=== PATIENT | female | born 1970 | race Caucasian/White ===

== ENCOUNTER 2017-09-26 09:12 | Emergency (ER) | payer MEDICAID ==
[~2017-09-26] VITALS: Ht 170.2 cm; Wt 104.5 kg
[2017-09-26] MEDS ORDERED: BUSP5TAB20 PO (09:30)
[2017-09-26] MEDS ORDERED: BACL10TA PO (09:30)
[2017-09-26] MEDS ORDERED: METF500T4 PO (09:30)
[2017-09-26] MEDS ORDERED: OXYC-522 PO (09:30)
[2017-09-26] MEDS ORDERED: NAPR-58 PO (09:30)
[2017-09-26] MEDS ORDERED: TRAZ150 PO (09:30)
[2017-09-26] MEDS ORDERED: GABA-531 PO (09:30)
[2017-09-26] MEDS ORDERED: GEMF600T3 PO (09:30)
[2017-09-26] MEDS ORDERED: LOSA25TA21 PO (09:30)
[2017-09-26] MEDS ORDERED: ASPI-1182 PO (09:30)
[2017-09-26] MEDS ORDERED: METO25 PO (09:30)
[2017-09-26] MEDS ORDERED: HYD50 PO (09:30)
[2017-09-26] MEDS ORDERED: ATOR10TA84 PO (09:30)
[2017-09-26] MEDS ORDERED: KETOROLAC TROMETHAMINE 30 MG/ML VIAL IVP ONE (10:15)
[2017-09-26] MEDS ORDERED: SODIUM CHLORIDE 0.9% 1,000 ML IV ONE (10:15)
[2017-09-26] MEDS ORDERED: ONDANSETRON HCL 4 MG/2 ML VIAL IVP ONE (10:15)
[2017-09-26 11:14] LABS: BASOPHILS % (AUTO) 0.8 % (0.0-2.0); HEMATOCRIT 40.1 % (36-46); HEMOGLOBIN 13.6 g/dL (12.0-16.0); LYMPHOCYTES # (AUTO) 2.2 K/uL (1.0-4.8); LYMPHOCYTES % (AUTO) 25.4 % (22.0-44.0); MEAN CORPUSCULAR HEMOGLOBIN 29.3 pg (26.0-34.0); MEAN CORPUSCULAR VOLUME 86 fL (80-100); MONOCYTES # (AUTO) 0.4 K/uL (0.1-1.0); MONOCYTES % (AUTO) 4.8 % (2.0-9.0); NEUTROPHILS # (AUTO) 5.7 K/uL (1.8-7.7); PLATELET COUNT (AUTO) 279 K/uL (150-450); RED BLOOD CELL COUNT(AUTO) 4.65 MIL/uL (4.00-5.20); RED CELL DISTRIBUTION WIDTH 14.2 % (11.5-14.5)
[2017-09-26 11:41] LABS: ANION GAP 9 mmol/L (8-16); CALCIUM, TOTAL 9.1 mg/dL (8.8-10.5); CARBON DIOXIDE 27 mmol/L (22-29); CHLORIDE 104 mmol/L (98-107); CREATININE 0.91 mg/dL (0.60-1.30); GLOMERULAR FILTR. RATE CALC > 60 mL/min (>60); GLUCOSE,RANDOM 131 mg/dL (70-110); POTASSIUM 4.4 mmol/L (3.5-5.1); SODIUM SERUM 140 mmol/L (136-145); UREA NITROGEN, BLOOD 23 mg/dL (7-18)
[2017-09-26 11:45] LABS: ALANINE AMINOTRANSFERASE 22 U/L (12-78); ALBUMIN 3.7 g/dL (3.4-5.0); ALKALINE PHOSPHATASE 88 U/L (46-116); ASPARTATE AMINOTRANSFERASE 13 U/L (15-37); BILIRUBIN,TOTAL 0.2 mg/dL (0.1-1.0); LIPASE 133 U/L (73-393)
[2017-09-26 11:50] LABS: APPEARANCE,URINE CLEAR (CLEAR); BILIRUBIN,URINE NEGATIVE (NEGATIVE); GLUCOSE, URINE (UA) NEGATIVE (NEGATIVE); KETONES,URINE NEGATIVE (NEGATIVE); LEUKOCYTE ESTERASE ,URINE NEGATIVE (NEGATIVE); NITRATE,URINE NEGATIVE (NEGATIVE); OCCULT BLOOD,URINE NEGATIVE (NEGATIVE); PROTEIN,URINE NEGATIVE (NEGATIVE); UROBILINOGEN,URINE 0.2 mg/dL (<=1.0)
[2017-09-26] MEDS ORDERED: HYDROCODONE/ACETAMINOPHEN 5-325 MG TABLET PO ONE (12:15)
[2017-09-26 12:21] VITALS: BP 119/87
== END 2017-09-26 12:46 | disposition home or self-care (01) ==
LOC: EMS 09:14
DX: R10.84 Generalized abdominal pain (principal); E11.9 Type 2 diabetes mellitus without complications; I10 Essential (primary) hypertension; I25.10 Atherosclerotic heart disease of native coronary artery without angina pectoris; M79.7 Fibromyalgia; F12.10 Cannabis abuse, uncomplicated; F17.210 Nicotine dependence, cigarettes, uncomplicated; Z79.82 Long term (current) use of aspirin
CPT/HCPCS: 36415; 74176; 80053; 81003; 83690; 84484; 84703; 85025; 93005; 96374; 96375; 99285; 99406; J1885; J2405; J7030

== ENCOUNTER 2020-02-12 17:54 | Inpatient (IN) | payer MEDICAID ==
[~2020-02-12] VITALS: Ht 167.6 cm; Wt 102.1 kg
[~2020-02-12 17:54] MED LIST: ASPI-1111 PO; ATOR10TA84 PO; BACL10TA PO; BUSP5TAB20 PO; GABA-1181 PO; GEMF600T5 PO; HYD50 PO; LOSA25TA71 PO; METF-960 PO; METO25 PO; NAPR-1025 PO; OXYC-618 PO; TRAZ150 PO
[2020-02-12] MEDS ORDERED: TRAZ150 PO (20:37)
[2020-02-12] MEDS ORDERED: BUSP15 PO (20:37)
[2020-02-12] MEDS ORDERED: QUEtiapine FUMARATE 100 MG TABLET PO PRN (23:15)
[2020-02-12] MEDS ORDERED: ZOLPIDEM TARTRATE 10 MG TABLET PO PRN (23:15)
[2020-02-12] MEDS ORDERED: PNEUMOCOCCAL VACCINE POLYVALENT 0.5 ML VIAL [PPSV23] IM ONE (23:45)
[2020-02-13 00:10] VITALS: BP 133/85
[2020-02-13] MEDS: LORazepam 2 MG TABLET PO PRN ×2 (00:24→09:22)
[2020-02-13 06:33] LABS: GLUCOMETER DEV NAME(LOC) BV2S.; GLUCOSE,POINT OF CARE 262 MG/DL (70-110)
[2020-02-13] MEDS ORDERED: GLUCAGON,HUMAN RECOMBINANT 1 MG VIAL IM PRN (07:45)
[2020-02-13] MEDS ORDERED: PETROLATUM,WHITE 28 GM JELLY TP PRN (08:15)
[2020-02-13] MEDS ORDERED: MAGNESIUM HYDROXIDE SUSPENSION 30 ML UDCUP PO PRN (08:15)
[2020-02-13] MEDS ORDERED: BACITRACIN 28.4 GM OINTMENT TP PRN (08:15)
[2020-02-13] MEDS ORDERED: MAG HYDROX/AL HYDROX/SIMETH ES 30 ML SUSPENSION UDCUP PO PRN (08:15)
[2020-02-13] MEDS ORDERED: DOCUSATE SODIUM 100 MG CAPSULE PO PRN (08:15)
[2020-02-13] MEDS ORDERED: CloNIDine HCL 0.1 MG TABLET PO PRN (08:15)
[2020-02-13] MEDS ORDERED: IBUPROFEN 600 MG TABLET PO PRN (08:15)
[2020-02-13] MEDS ORDERED: ALBUTEROL SULFATE HFA 90 MCG/PUFF 8 GM INHALER IH PRN (08:15)
[2020-02-13] MEDS ORDERED: ONDANSETRON HCL 4 MG TABLET PO PRN (08:15)
[2020-02-13] MEDS ORDERED: BENZOCAINE/MENTHOL LOZENGE PO PRN (08:15)
[2020-02-13] MEDS ORDERED: OMEPRAZOLE 20 MG CAPSULE PO PRN (08:15)
[2020-02-13] MEDS ORDERED: LOPERAMIDE HCL 2 MG CAPSULE PO PRN (08:15)
[2020-02-13] MEDS: ATORVASTATIN CALCIUM 10 MG TABLET PO SCH (08:20)
[2020-02-13] MEDS: MetFORMIN HCL 500 MG TABLET PO SCH ×2 (08:20→17:03)
[2020-02-13] MEDS: ASPIRIN 81 MG EC TABLET PO SCH (08:20)
[2020-02-13] MEDS: METOPROLOL TARTRATE 25 MG TABLET PO SCH ×2 (08:20→16:40)
[2020-02-13 08:41] LABS: HEMATOCRIT 43.4 % (36-46); HEMOGLOBIN 14.6 g/dL (12.0-16.0); LYMPHOCYTES # (AUTO) 2.3 K/uL (1.0-4.8); LYMPHOCYTES % (AUTO) 31.3 % (22.0-44.0); MEAN CORPUSCULAR HGB CONC 33.7 G/dL (31.0-37.0); MEAN CORPUSCULAR VOLUME 89 fL (80-100); MONOCYTES # (AUTO) 0.4 K/uL (0.1-1.0); MONOCYTES % (AUTO) 5.8 % (2.0-9.0); NEUTROPHILS # (AUTO) 4.3 K/uL (1.8-7.7); NEUTROPHILS % (AUTO) 58.9 % (40.0-70.0); PLATELET COUNT (AUTO) 291 K/uL (150-450); RED BLOOD CELL COUNT(AUTO) 4.88 MIL/uL (4.00-5.20); RED CELL DISTRIBUTION WIDTH 13.1 % (11.5-14.5)
[2020-02-13 08:50] LABS: HEMOGLOBIN A1C 10.5 % (3.8-5.6)
[2020-02-13 08:58] VITALS: BP 142/88
[2020-02-13 09:16] LABS: ALANINE AMINOTRANSFERASE 18 U/L (12-78); ALBUMIN 3.5 g/dL (3.4-5.0); ALKALINE PHOSPHATASE 91 U/L (46-116); ANION GAP 8 mmol/L (8-16); ASPARTATE AMINOTRANSFERASE 10 U/L (15-37); BILIRUBIN,TOTAL 0.2 mg/dL (0.1-1.0); CALCIUM, TOTAL 9.8 mg/dL (8.8-10.5); CARBON DIOXIDE 26 mmol/L (22-29); CHLORIDE 100 mmol/L (98-107); CHOL/HDL RATIO 5.4 (3.9-5.7); CHOLESTEROL 211 mg/dL (131-200); CREATININE 0.96 mg/dL (0.60-1.30); FREE T4 (FREE THYROXINE) 1.18 ng/dL (0.76-1.46); GLOMERULAR FILTR. RATE CALC > 60 mL/min (>60); GLUCOSE,RANDOM 253 mg/dL (70-110); HDL CHOLESTEROL 39 mg/dL (40-60); LDL CHOL (CALC.) 98 mg/dL (0-130); SODIUM SERUM 134 mmol/L (136-145); THYROID STIMULATING HORMONE 1.53 uIU/mL (0.36-3.74); TRIGLYCERIDES 369 mg/dL (15-150); UREA NITROGEN, BLOOD 16 mg/dL (7-18)
[2020-02-13] MEDS: INSULIN LISPRO 100 UNITS/ML SQ PRN ×3 (10:54→20:50)
[2020-02-13 11:01] LABS: GLUCOMETER DEV NAME(LOC) BV2S.; GLUCOSE,POINT OF CARE 218 MG/DL (70-110)
[2020-02-13 12:57] VITALS: BP 138/90
[2020-02-13] MEDS: BACLOFEN 10 MG TABLET PO SCH ×2 (12:57→16:40)
[2020-02-13] MEDS: LOSARTAN POTASSIUM 25 MG TABLET PO SCH (12:57)
[2020-02-13] MEDS: ACETAMINOPHEN 325 MG TABLET PO PRN (12:58)
[2020-02-13 16:29] VITALS: BP 138/78
[2020-02-13] MEDS: GEMFIBROZIL 600 MG TABLET PO SCH (16:40)
[2020-02-13] MEDS: NAPROXEN 500 MG TABLET PO SCH (16:40)
[2020-02-13] MEDS: GABAPENTIN 300 MG CAPSULE PO SCH (16:40)
[2020-02-13] MEDS: BusPIRone HCL 15 MG TABLET PO SCH (16:40)
[2020-02-13 17:49] LABS: GLUCOMETER DEV NAME(LOC) BV2S.; GLUCOSE,POINT OF CARE 190 MG/DL (70-110)
[2020-02-13] MEDS: LURASIDONE HCL 60 MG TABLET PO SCH (20:41)
[2020-02-13] MEDS: TraZODone HCL 150 MG TABLET PO SCH (20:41)
[2020-02-13 21:14] LABS: GLUCOMETER DEV NAME(LOC) BV2S.; GLUCOSE,POINT OF CARE 207 MG/DL (70-110)
[2020-02-14 06:18] LABS: GLUCOMETER DEV NAME(LOC) BV2S.; GLUCOSE,POINT OF CARE 256 MG/DL (70-110)
[2020-02-14] MEDS: GEMFIBROZIL 600 MG TABLET PO SCH ×2 (06:47→16:35)
[2020-02-14] MEDS: INSULIN LISPRO 100 UNITS/ML SQ PRN ×4 (06:48→21:00)
[2020-02-14] MEDS: METOPROLOL TARTRATE 25 MG TABLET PO SCH ×2 (08:12→16:35)
[2020-02-14] MEDS: BusPIRone HCL 15 MG TABLET PO SCH ×3 (08:12→16:35)
[2020-02-14] MEDS: MetFORMIN HCL 500 MG TABLET PO SCH ×2 (08:12→17:05)
[2020-02-14] MEDS: GABAPENTIN 300 MG CAPSULE PO SCH ×3 (08:12→16:35)
[2020-02-14] MEDS: ATORVASTATIN CALCIUM 10 MG TABLET PO SCH (08:12)
[2020-02-14] MEDS: BACLOFEN 10 MG TABLET PO SCH ×3 (08:13→16:35)
[2020-02-14] MEDS: LOSARTAN POTASSIUM 25 MG TABLET PO SCH (08:13)
[2020-02-14] MEDS: ASPIRIN 81 MG EC TABLET PO SCH (08:20)
[2020-02-14] MEDS: NAPROXEN 500 MG TABLET PO SCH ×2 (08:21→16:35)
[2020-02-14] MEDS: ACETAMINOPHEN 325 MG TABLET PO PRN (08:23)
[2020-02-14] MEDS: LORazepam 2 MG TABLET PO PRN ×2 (08:25→17:04)
[2020-02-14 09:05] VITALS: BP 111/81
[2020-02-14 11:04] LABS: GLUCOMETER DEV NAME(LOC) BV2S.; GLUCOSE,POINT OF CARE 234 MG/DL (70-110)
[2020-02-14] MEDS: NICOTINE POLACRILEX 2 MG LOZENGE PO PRN (14:22)
[2020-02-14 16:04] VITALS: BP 107/62
[2020-02-14 18:29] LABS: GLUCOMETER DEV NAME(LOC) BV2S.; GLUCOSE,POINT OF CARE 299 MG/DL (70-110)
[2020-02-14 20:29] LABS: GLUCOMETER DEV NAME(LOC) BV2S.; GLUCOSE,POINT OF CARE 221 MG/DL (70-110)
[2020-02-14] MEDS: LURASIDONE HCL 60 MG TABLET PO SCH (20:46)
[2020-02-14] MEDS: TraZODone HCL 150 MG TABLET PO SCH (20:47)
[2020-02-15 01:56] VITALS: BP 110/70
[2020-02-15 06:18] LABS: GLUCOMETER DEV NAME(LOC) BV2S.; GLUCOSE,POINT OF CARE 250 MG/DL (70-110)
[2020-02-15] MEDS: GEMFIBROZIL 600 MG TABLET PO SCH ×2 (06:28→16:02)
[2020-02-15] MEDS: INSULIN LISPRO 100 UNITS/ML SQ PRN ×4 (06:49→20:25)
[2020-02-15] MEDS: ASPIRIN 81 MG EC TABLET PO SCH (09:00)
[2020-02-15] MEDS: NAPROXEN 500 MG TABLET PO SCH ×2 (09:00→16:50)
[2020-02-15] MEDS: ATORVASTATIN CALCIUM 10 MG TABLET PO SCH (09:10)
[2020-02-15] MEDS: MetFORMIN HCL 500 MG TABLET PO SCH ×2 (09:11→16:46)
[2020-02-15] MEDS: LOSARTAN POTASSIUM 25 MG TABLET PO SCH (09:11)
[2020-02-15] MEDS: BusPIRone HCL 15 MG TABLET PO SCH ×3 (09:11→16:03)
[2020-02-15] MEDS: GABAPENTIN 300 MG CAPSULE PO SCH ×3 (09:11→16:02)
[2020-02-15] MEDS: BACLOFEN 10 MG TABLET PO SCH ×3 (09:11→16:03)
[2020-02-15] MEDS: METOPROLOL TARTRATE 25 MG TABLET PO SCH ×2 (09:11→16:46)
[2020-02-15 09:14] VITALS: BP 111/68
[2020-02-15] MEDS: LORazepam 2 MG TABLET PO PRN (10:21)
[2020-02-15 11:07] LABS: GLUCOMETER DEV NAME(LOC) BV2S.; GLUCOSE,POINT OF CARE 353 MG/DL (70-110)
[2020-02-15] MEDS: NICOTINE POLACRILEX 2 MG LOZENGE PO PRN ×2 (13:37→17:41)
[2020-02-15] MEDS ORDERED: BENZOCAINE/RESORCINOL 30 GM CREAM TP PRN (14:15)
[2020-02-15 16:20] VITALS: BP 113/76
[2020-02-15 17:39] LABS: GLUCOMETER DEV NAME(LOC) BV2S.; GLUCOSE,POINT OF CARE 364 MG/DL (70-110)
[2020-02-15] MEDS: LURASIDONE HCL 60 MG TABLET PO SCH (20:19)
[2020-02-15] MEDS: TraZODone HCL 150 MG TABLET PO SCH (20:19)
[2020-02-15 21:11] LABS: GLUCOMETER DEV NAME(LOC) BV2S.; GLUCOSE,POINT OF CARE 202 MG/DL (70-110)
[2020-02-16 04:51] VITALS: BP 131/90
[2020-02-16 05:06] LABS: GLUCOMETER DEV NAME(LOC) BV2S.; GLUCOSE,POINT OF CARE 272 MG/DL (70-110)
[2020-02-16] MEDS: GEMFIBROZIL 600 MG TABLET PO SCH ×2 (06:12→16:30)
[2020-02-16] MEDS: INSULIN LISPRO 100 UNITS/ML SQ PRN ×3 (06:14→16:32)
[2020-02-16 08:05] VITALS: BP 129/92
[2020-02-16] MEDS: BusPIRone HCL 15 MG TABLET PO SCH ×3 (08:32→16:26)
[2020-02-16] MEDS: LOSARTAN POTASSIUM 25 MG TABLET PO SCH (08:32)
[2020-02-16] MEDS: MetFORMIN HCL 500 MG TABLET PO SCH ×2 (08:32→16:26)
[2020-02-16] MEDS: GABAPENTIN 300 MG CAPSULE PO SCH ×3 (08:32→16:25)
[2020-02-16] MEDS: METOPROLOL TARTRATE 25 MG TABLET PO SCH ×2 (08:32→16:26)
[2020-02-16] MEDS: NAPROXEN 500 MG TABLET PO SCH ×2 (08:33→16:30)
[2020-02-16] MEDS: ASPIRIN 81 MG EC TABLET PO SCH (08:33)
[2020-02-16] MEDS: BACLOFEN 10 MG TABLET PO SCH ×3 (08:33→16:25)
[2020-02-16] MEDS: ATORVASTATIN CALCIUM 10 MG TABLET PO SCH (08:41)
[2020-02-16] MEDS: NICOTINE POLACRILEX 2 MG LOZENGE PO PRN (08:42)
[2020-02-16] MEDS: ACETAMINOPHEN 325 MG TABLET PO PRN (09:01)
[2020-02-16 11:05] LABS: GLUCOMETER DEV NAME(LOC) BV2S.; GLUCOSE,POINT OF CARE 250 MG/DL (70-110)
[2020-02-16] MEDS: LORazepam 2 MG TABLET PO PRN (14:49)
[2020-02-16 16:12] VITALS: BP 124/79
[2020-02-16 16:42] LABS: GLUCOMETER DEV NAME(LOC) BV2S.; GLUCOSE,POINT OF CARE 265 MG/DL (70-110)
[2020-02-16] MEDS ORDERED: TRAZ150 PO (17:45)
[2020-02-16] MEDS ORDERED: LURA60TA PO (17:46)
[2020-02-16] MEDS ORDERED: ASPI-728 PO (17:49)
== END 2020-02-16 19:10 | disposition home or self-care (01) | DRG 885 ==
LOC: B2S 23:15
PROVIDERS: ADMIT Psychiatry & Neurology Psychiatry; ATTEND Psychiatry & Neurology Psychiatry
DX: F25.9 Schizoaffective disorder, unspecified (principal); E11.65 Type 2 diabetes mellitus with hyperglycemia; E78.5 Hyperlipidemia, unspecified; I10 Essential (primary) hypertension; F41.9 Anxiety disorder, unspecified; K21.9 Gastro-esophageal reflux disease without esophagitis; E66.9 Obesity, unspecified; Z68.36 Body mass index [BMI] 36.0-36.9, adult; Z28.21 Immunization not carried out because of patient refusal
CPT/HCPCS: 83036; 84439; 84443